=== PATIENT | female | born 1950 | race Caucasian/White ===

== ENCOUNTER 2021-07-29 12:02 | Emergency (ER) | payer OTHER ==
[~2021-07-29] VITALS: Ht 172.7 cm; Wt 123.4 kg
[2021-07-29 15:21] VITALS: BP 158/87
[2021-07-29] MEDS ORDERED: ONDANSETRON ODT 4 MG TAB PO ONE (17:15)
[2021-07-29] MEDS ORDERED: HYDROcodone-ACET 10/325MG TAB PO ONE (17:15)
== END 2021-07-29 18:33 | disposition home or self-care (01) ==
LOC: ER 12:02
DX: S39.012A Strain of muscle, fascia and tendon of lower back, initial encounter (principal); R07.89 Other chest pain; G89.29 Other chronic pain; I10 Essential (primary) hypertension; E11.9 Type 2 diabetes mellitus without complications; Z88.6 Allergy status to analgesic agent; Z88.8 Allergy status to other drugs, medicaments and biological substances; Z91.040 Latex allergy status; Z90.710 Acquired absence of both cervix and uterus; X58.XXXA Exposure to other specified factors, initial encounter; Y93.89 Activity, other specified; Y92.89 Other specified places as the place of occurrence of the external cause; Y99.8 Other external cause status
CPT/HCPCS: 72100; 93005; 93971; 99284; Q0162